=== PATIENT | male | born 1995 | race Caucasian/White ===

== ENCOUNTER 2019-01-03 10:28 | Emergency (ER) | payer SELFPAY ==
[2019-01-03 10:37] VITALS: BP 133/84
--- NOTE | 2019-01-03 11:08 | UC ---
Dizzy HPI HPI Summary: 23 y/o male with no PMH with 2 days history of lightheadedness felt dizzy and lightheaded at work , denies any fever, chills no n/v/d/c , denies any urinary symptoms no abdominal pain , no gi bleeding denies any alcohol use, no drug use - History Of Current Complaint Chief Complaint: UCDizziness Stated Complaint: LIGHT HEADED, DIZZY Time Seen by Provider: 01/03/19 10:43 Hx Obtained From: Patient Onset/Duration: Gradual Onset, Lasting Days - 2, Still Present Timing: Hours - 22 hrs Severity Initially: Moderate Severity Currently: Moderate Pain Intensity: 0 Character: Lightheaded, Dizzy Aggravating Factor(s): Exertion Alleviating Factor(s): Rest Associated Signs And Symptoms: Positive: Chest Pain. Negative: Nausea, Vomiting , Diaphoresis, Tinnitus, SOB, Palpitations, Unsteady Gait, Visual Changes, Decreased Oral Intake, Change In Medication, Change In Diet, OTC Medications - Risk Factors Cardiac Risk Factors: Negative CVA Risk Factor: Negative - Allergies/Home Medications Allergies/Adverse Reactions: Allergies Allergy/AdvReac Type Severity Reaction Status Date / Time No Known Allergies Allergy Verified 01/03/19 10:33 Home Medications: Home Medications NK [No Home Medications Reported] 01/03/19 [History Confirmed 01/03/19] PMH/Surg Hx/FS Hx/Imm Hx Previously Healthy: Yes - Surgical History Surgical History: None - Family History Known Family History: Positive: Diabetes - Social History Alcohol Use: None Substance Use Type: None Smoking Status (MU): Never Smoked Tobacco Review of Systems All Other Systems Reviewed And Are Negative: Yes Constitutional: Positive: Negative Skin: Positive: Negative Eyes: Positive: Negative ENT: Positive: Negative Respiratory: Positive: Negative Neurological: Positive: Weakness Is Patient Immunocompromised?: No Physical Exam Triage Information Reviewed: Yes Appearance: Well-Appearing, No Pain Distress, Obese Vital Signs: Initial Vital Signs Temp 97.0 F 01/03/19 10:33 Pulse 78 01/03/19 10:33 Resp 18 01/03/19 10:33 BP 133/84 01/03/19 10:33 Pulse Ox 99 01/03/19 10:33 Vital Signs Reviewed: Yes Eye Exam: Normal Eyes: Positive: Conjunctiva Clear ENT: Positive: Normal ENT inspection, Hearing grossly normal, Pharynx normal, TMs normal. Negative: TM bulging, TM dull, TM red, Tonsillar swelling, Tonsillar exudate Neck: Positive: Supple, Nontender, No Lymphadenopathy Respiratory: Positive: Chest non-tender, Lungs clear, Normal breath sounds Cardiovascular: Positive: RRR, No Murmur, Pulses Normal Abdominal Exam: Normal Abdomen Description: Positive: Nontender, Soft. Negative: CVA Tenderness (R), CVA Tenderness (L), Distended, Guarding Musculoskeletal Exam: Normal Musculoskeletal: Positive: Strength Intact Neurological: Positive: Alert, Muscle Tone Normal. Negative: Fatigued, Lethargic, Unresponsive, Abnormal Muscle Tone Psychological Exam: Normal Skin Exam: Normal Dizzy Course/Dx - Differential Dx/Diagnosis Provider Diagnosis: Lightheadedness Discharge - Sign-Out/Discharge Documenting (check all that apply): Patient Departure All imaging exams completed and their final reports reviewed: No Studies - Discharge Plan Condition: Stable Disposition: HOME Patient Education Materials: Garret (ED) Forms: *Work Release - Billing Disposition and Condition Condition: STABLE Disposition: Home
== END 2019-01-03 11:21 | disposition home or self-care (01) ==
LOC: UCCORT 10:28
DX: R42 Dizziness and giddiness (principal)
CPT/HCPCS: 93005; 99201; G0463